=== PATIENT | female | born 1990 | race Caucasian/White ===

== ENCOUNTER 2018-03-26 17:26 | Emergency (ER) | payer BC ==
--- NOTE | 2018-03-26 17:44 | PDOC ---
Rapid Medical Evaluation Time Seen by Provider: 03/26/18 17:42 Medical Evaluation: Allergies Allergy/AdvReac Type Severity Reaction Status Date / Time No Known Allergies Allergy Verified 03/26/18 17:42 03/26/18 17:43 I have performed a brief in-person evaluation of this patient. The patient presents with a chief complaint of:vaginal spotting today and abd pain x week. ~6 weeks , no pre-bebe to date. Pt , s/p demise for unclear reason Pertinent physical exam findings:Stable and well linda I have ordered the following: labs/US The patient will proceed to the ED for further evaluation. 03/26/18 17:45 03/26/18 17:52
[2018-03-26 17:55] VITALS: BP 122/55; PULSE 107; TEMP 98.6; BMI 24.0
--- NOTE | 2018-03-26 19:15 | PDOC ---
History of Present Illness - General Chief Complaint: Vaginal Bleeding Stated Complaint: PAIN, 5 WEEK PREG Time Seen by Provider: 03/26/18 17:42 History Source: Patient - History of Present Illness Initial Comments: 03/29/18 21:01 Patient about 6 weeks coming today for vaginal spotting and abdominal pain for the past week. As appointment with OBGYN clinic later in the week. Hasn't had a ultrasound yet at this point of the . 03/29/18 21:10 Past History - Past Medical History Allergies/Adverse Reactions: Allergies Allergy/AdvReac Type Severity Reaction Status Date / Time No Known Allergies Allergy Verified 03/26/18 17:42 COPD: No Other medical history: DENIES. - Suicide/Smoking/Psychosocial Hx Smoking History: Never smoked Review of Systems - Review of Systems Able to Perform ROS?: Yes Is the patient limited Malagasy proficient: No Constitutional: No: Symptoms Reported HEENTM: No: Symptoms Reported Respiratory: No: Symptoms reported Cardiac (ROS): No: Symptoms Reported ABD/GI: Yes: See HPI : No: Symptoms Reported Musculoskeletal: No: Symptoms Reported Integumentary: No: Symptoms Reported All Other Systems: Reviewed and Negative *Physical Exam - Vital Signs Last Vital Signs Temp Pulse Resp BP Pulse Ox 98.6 F 107 H 19 122/55 99 03/26/18 17:42 03/26/18 17:42 03/26/18 17:42 03/26/18 17:42 03/26/18 17:42 - Physical Exam General Appearance: Yes: Nourished, Appropriately Dressed. No: Apparent Distress HEENT: positive: EOMI, HECTOR, Normal ENT Inspection Respiratory/Chest: positive: Lungs Clear, Normal Breath Sounds. negative: Chest Tender, Respiratory Distress Cardiovascular: positive: Regular Rhythm, Regular Rate, S1, S2 Gastrointestinal/Abdominal: positive: Normal Bowel Sounds, Tender (lower abdominal ), Flat, Soft Musculoskeletal: positive: Normal Inspection. negative: CVA Tenderness Integumentary: positive: Normal Color, Dry, Warm Neurologic: positive: Fully Oriented, Alert, Normal Mood/Affect Medical Decision Making - Medical Decision Making 03/29/18 21:09 Patient asking to leave AMA before blood and US could be performed as she waited to long. Will follow up with OBGYN clinic *DC/Admit/Observation/Transfer Diagnosis at time of Disposition: Left against medical advice - Discharge Dispostion Disposition: AGAINST MEDICAL ADVICE Condition at time of disposition: Unchanged/Unknown - Referrals Referrals: ON STAFF,NOT [Primary Care Provider] - - Patient Instructions - Post Discharge Activity
== END 2018-03-26 19:38 | disposition left against medical advice (07) ==
LOC: JER 17:26
DX: O26.891 Other specified pregnancy related conditions, first trimester (principal); Z3A.01 Less than 8 weeks gestation of pregnancy
CPT/HCPCS: 99281-25